=== PATIENT | female | born 1990 | race African-American/Black ===

== ENCOUNTER 2017-01-17 12:03 | Emergency (ER) | payer OTHER, MEDICAID ==
[~2017-01-17] VITALS: Ht 160 cm; Wt 84.0 kg
[~2017-01-17 12:03] MED LIST: ARIP1TAB46 PO; KLON2TAB PO; LAMI25TA3 PO; MOTI25CH PO; VIIB40TA PO; Z.0.BCPILL PO
[2017-01-17 12:05] VITALS: BP 139/94; PULSE 82; RESP 16; TEMP 98.4; O2SAT 99
[2017-01-17] MEDS ORDERED: IBUPROFEN 400 MG TAB PO ONE (12:30)
--- NOTE | 2017-01-17 13:39 | RADRPT ---
EXAM DATE/TIME: 01/17/2017 12:42 [place] COMPARISON: No previous studies available for comparison. INDICATIONS : Pain right great toe, stubbed toe today and lifted toe nail MEDICAL HISTORY : None. SURGICAL HISTORY : None. ENCOUNTER: Initial ACUITY: 1 day PAIN SCORE: 7/10 LOCATION: Right great toe FINDINGS: Examination of the first digit of the right foot demonstrates no evidence of fracture or dislocation. No radiopaque foreign bodies are seen. The soft tissues are intact. It appears that the first toe nail is lifted off the toe nail bed on the lateral view. CONCLUSION: No acute fracture or joint dislocation. Froylan Ward MD on January 17, 2017 at 13:37 Board Certified Radiologist. This report was verified electronically.
--- NOTE | 2017-01-17 14:05 | PD ---
HPI . Right great toe injury Chief Complaint: Injury Time Seen by Provider: 12:13 Travel History International Travel<30 days: No Contact w/Intl Traveler<30days: No Traveled to known affect area: No History of Present Illness HPI 26-year-old female patient presents to the emergency department for evaluation of a right great toe injury that was sustained when she went taking her feet back and forth while sitting in a chair at work and hit her right foot on the wall. The right toe nail is lifted from the distal portion of the nailbed. The nailbed is in place. The patient denies any major medical history. She does not take any daily medication. PFSH Past Medical History Anxiety: Yes Depression: Yes (PT CURRENTLY UNDER A MIKE ACT) Seizures: Yes ("STRESS RELATED" FROM RECENT ACCIDENT) ?: Not LMP: 12/2016 Social History Alcohol Use: No Tobacco Use: No Substance Use: No Allergies-Medications (Allergen,Severity, Reaction): Coded Allergies: sulfamethoxazole (Verified Allergy, Severe, RASH, 01/17/17) trimethoprim (Verified Allergy, Severe, RASH, 01/17/17) latex (Verified Allergy, Intermediate, itching, rash, 01/17/17) Reported Meds & Prescriptions Reported Meds & Active Scripts Active Reported Abilify 10 Mg Tab (Aripiprazole) 10 Mg Tab 10 Mg PO HS Lamictal (Lamotrigine) 25 Mg Tab 25 Mg PO BID TAKE FOUR (4) TABS BID Control Pills (Miscellaneous Medication) Tab 1 Tab PO DAILY Klonopin (Clonazepam) 2 Mg Tab 2 Mg PO HS Viibryd (Vilazodone HCl) 40 Mg Tab 40 Mg PO HS Meclizine Hcl (Meclizine HCl) 25 Mg Tab 25 Mg PO Q6 Review of Systems Except as stated in HPI: all other systems reviewed are Neg Physical Exam Narrative GENERAL: Well-nourished, well-developed 26 year old female patient in no acute distress. Nontoxic appearing. SKIN: Focused skin assessment warm/dry. HEAD: Normocephalic. Atraumatic. NECK: Supple, trachea midline. No JVD or lymphadenopathy. CARDIOVASCULAR: Regular rate and rhythm without murmurs, gallops, or rubs. RESPIRATORY: Breath sounds equal bilaterally. No accessory muscle use. GASTROINTESTINAL: Abdomen soft, non-tender, nondistended. MUSCULOSKELETAL: Right toenail lifted from nail bed at the distal portion. Right toe pain to palpation. No obvious deformity, ecchymosis, cyanosis, or edema. Data Data Last Documented VS Vital Signs Date Time Temp Pulse Resp B/P (MAP) Pulse Ox O2 Delivery O2 Flow Rate FiO2 01/17/17 14:25 01/17/17 12:05 98.4 82 16 99 Orders Orders Toe (Min 2vws) (01/17/17 12:19) Ice/Cold Pack (01/17/17 12:19) Ibuprofen (Motrin) (01/17/17 12:30) Ed Discharge Order (01/17/17 14:17) Lidocaine 1% Inj (50 Ml) (Xylocaine 1% I (01/17/17 14:30) Post Op Boot (Shoe) (01/17/17 ) [facility] Medical Decision Making Medical Screen Exam Complete: Yes Emergency Medical Condition: Yes Differential Diagnosis Differential diagnoses include but not limited to right great toe contusion, right great toe fracture, nailbed avulsion Narrative Course 26 year old female presents emergency department for evaluation of right great toe injury that was sustained today while at work which is kicking her feet and her right toe hit the wall lifting the toenail away from the nail bed at the distal portion of the toe. The nail bed at the proximal portion is still in proper placement. X-ray of the right great toe shows no fracture or dislocation. The patient was given ibuprofen for pain and swelling. Lidocaine was used to perform a digital block of the right toe in an attempt to push the nail back into place however the nail is full of a fungal infection and it is difficult as the nail is brittle and thick. The patient is given a postop boot to help her protect the nail she walks and instructions to use ibuprofen for pain and swelling and to follow-up with a electro plater. Patient given instructions to return to the emergency department as needed. 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 Follow up with your primary care provider. May take [id number] ibuprofen as needed for pain and swelling. May use ice as a for pain and swelling. Scripts Cephalexin (Keflex) 500 Mg Capsule 500 MG PO Q6H for Infection for 5 Days, #20 CAP 0 Refills Prov: Karely,Nancie Tali [employer] 01/17/17 Naproxen (Naproxen) 500 Mg Tab 500 MG PO BID for 5 Days, #10 TAB 0 Refills Prov: Nancie Cali 01/17/17 Disposition: 01 DISCHARGE HOME Condition: Stable Nancie Cali Jan 17, 2017 14:05
[2017-01-17] MEDS ORDERED: LIDOCAINE HCL 1% 50 ML VIAL INFIL ONE (14:30)
[2017-01-17] MEDS ORDERED: CEPH-460 PO (14:30)
[2017-01-17] MEDS ORDERED: NAPR500T2 PO (14:30)
== END 2017-01-17 14:26 | disposition home or self-care (01) ==
LOC: NEPK 12:03
DX: S91.201A Unspecified open wound of right great toe with damage to nail, initial encounter (principal); W22.01XA Walked into wall, initial encounter; Y93.89 Activity, other specified
CPT/HCPCS: 64450; 73660; 99283; L3260